=== PATIENT | female | born 1960 | race Caucasian/White ===

== ENCOUNTER 2022-06-12 15:09 | Emergency (ER) | payer OTHER ==
[~2022-06-12] VITALS: Ht 171.4 cm; Wt 72.7 kg
[2022-06-12 15:42] VITALS: BP 145/112
== END 2022-06-12 17:28 | disposition home or self-care (01) ==
LOC: ER 15:10
DX: S92.352A Displaced fracture of fifth metatarsal bone, left foot, initial encounter for closed fracture (principal); M54.59 Other low back pain; X58.XXXA Exposure to other specified factors, initial encounter; Y93.89 Activity, other specified; Y92.89 Other specified places as the place of occurrence of the external cause; Y99.8 Other external cause status
CPT/HCPCS: 73610; 73630; 99284